=== PATIENT | female | born 1965 | race Caucasian/White ===

== ENCOUNTER 2016-07-20 17:12 | Emergency (ER) | payer BC ==
[~2016-07-20] VITALS: Ht 162.6 cm; Wt 70.3 kg
[2016-07-20 19:46] VITALS: BP 167/92
== END 2016-07-20 19:46 | disposition home or self-care (01) ==
LOC: ED 17:12
DX: G43.909 Migraine, unspecified, not intractable, without status migrainosus (principal); E03.9 Hypothyroidism, unspecified; E78.00 Pure hypercholesterolemia, unspecified; R11.2 Nausea with vomiting, unspecified
CPT/HCPCS: J2765; J3030; Q0162

== ENCOUNTER 2017-05-09 19:32 | Emergency (ER) | payer BC ==
[~2017-05-09] VITALS: Ht 162.6 cm; Wt 68.5 kg
[2017-05-09 19:40] VITALS: BP 161/93; Ht 162.6 cm; Wt 68.5 kg
== END 2017-05-09 22:17 | disposition left against medical advice (07) ==
LOC: ED 19:32
DX: Z53.21 Procedure and treatment not carried out due to patient leaving prior to being seen by health care provider (principal)

== ENCOUNTER 2017-05-09 22:24 | Emergency (ER) | payer BC ==
[~2017-05-09] VITALS: Ht 162.6 cm; Wt 68.5 kg
[2017-05-09 22:41] VITALS: Ht 162.6 cm; Wt 68.5 kg
[2017-05-10 08:13] VITALS: BP 158/84
== END 2017-05-10 08:13 | disposition home or self-care (01) ==
LOC: ED 22:24
DX: J20.9 Acute bronchitis, unspecified (principal); E78.00 Pure hypercholesterolemia, unspecified

== ENCOUNTER 2018-07-23 20:21 | Emergency (ER) | payer BC ==
[~2018-07-23] VITALS: Ht 167.6 cm; Wt 65.8 kg
[2018-07-23 20:55] VITALS: Ht 167.6 cm; Wt 65.8 kg
[2018-07-23 22:14] VITALS: BP 156/79
== END 2018-07-23 22:14 | disposition home or self-care (01) ==
LOC: ED 20:21
DX: R07.89 Other chest pain (principal); T45.8X5A Adverse effect of other primarily systemic and hematological agents, initial encounter; M54.9 Dorsalgia, unspecified; E03.9 Hypothyroidism, unspecified; E78.00 Pure hypercholesterolemia, unspecified; C90.00 Multiple myeloma not having achieved remission; R06.02 Shortness of breath; Y92.89 Other specified places as the place of occurrence of the external cause
CPT/HCPCS: J1885; J2060; Q0092